=== PATIENT | male | born 1950 | race Caucasian/White ===

== ENCOUNTER 2017-09-30 09:32 | Emergency (ER) | payer OTHER ==
[~2017-09-30] VITALS: Ht 193 cm; Wt 103.4 kg
[~2017-09-30 09:32] MED LIST: B-COMPLEX-VITA1 EACH PO; DILAUDID4 MG PO; FLOMAX0.4 MG PO; LEVOTHYROXINE150 MCG PO; NORFLEX100 MG PO; OMEGA 3-6-91200 MG PO; OSTEO BI-FLEX1 EACH PO; PREDNISONE10 MG PO; TRAMADOL-APAP1 EACH PO
[2017-09-30 10:21] LABS: APPEARANCE SL.HAZY ((CLEAR)); BASOPHIL (%) 0.2 % (0-1); BILIRUBIN NEGATIVE; BLOOD NEGATIVE; COLOR AMBER ((YELLOW)); EOSINOPHIL (%) 0.4 % (0-5); GLUCOSE (STRIP) NEGATIVE; HEMATOCRIT 52.2 % (38.0-50.0); HEMOGLOBIN 17.1 G/DL (12.5-16.6); IMMATURE GRANULOCYTE (%) 0.2 % (0.0-0.7); KETONES 20; LEUKOCYTES TRACE; LYMPHOCYTE COUNT 0.4 K/uL (1.0-2.8); MCH 31.2 PG (29.0-34.0); MCHC 32.8 G/DL (30.0-36.0); MCV 95.3 FL (86-99); MONOCYTE (%) 2.6 % (3-12); MONOCYTE COUNT 0.3 K/uL (0-0.8); NEUTROPHIL (%) 92.6 % (45-76); NEUTROPHIL COUNT 9.5 K/uL (1.8-6.4); NITRITE NEGATIVE; PLATELET COUNT 230 K/uL (156-360); PROTEIN (STRIP) 30; RBC DIS.WIDTH-CV 12.1 % (11.8-14.6); RED BLOOD COUNT 5.48 M/uL (4.00-5.50); SPECIFIC GRAVITY 1.033 (1.000-1.030); UROBILINOGEN 0.2 MG/DL (0.2-1.0); WHITE BLOOD COUNT 10.2 K/uL (4.1-10.2)
[2017-09-30 10:33] LABS: ALBUMIN 4.5 g/dL (3.2-4.8); CHLORIDE 103 mEq/L (99-109); POTASSIUM 4.1 mEq/L (3.7-5.4); SODIUM 139 mEq/L (136-147)
[2017-09-30 10:36] LABS: GLUCOSE 155 mg/dL (70-99); TOTAL PROTEIN 7.6 g/dL (6.4-8.3)
[2017-09-30 10:39] LABS: ALKALINE PHOSPHATASE 196 IU/L (3-129); CREATININE 1.1 mg/dL (0.6-1.3); GFR ESTIMATE (CALCULATED) > 59 mL/min/ (58.99-99999)
[2017-09-30 10:40] LABS: AMORPHOUS URATES CRYSTALS 1+; BACTERIA RARE /HPF; EPITHELIAL CELLS 1+ /HPF; HYALINE CASTS 0-5 /LPF; UREA NITROGEN (BUN) 31 mg/dL (9-23); WHITE BLOOD CELLS 0-5 /HPF (0-5)
[2017-09-30 10:41] LABS: AST (GOT) 77 IU/L (2-34); MUCUS 2+ /LPF
[2017-09-30 10:42] LABS: ALT (GPT) 233 IU/L (3-49)
[2017-09-30 10:43] LABS: LIPASE 15 U/L (1.0-51.0)
[2017-09-30 12:12] LABS: C DIFF TOXIN NEGATIVE (NEGATIVE)
[2017-09-30] MEDS ORDERED: ZOFRAN4 MG PO (15:37)
[2017-09-30] MEDS ORDERED: BENTYL20 MG PO (15:37)
[2017-09-30] MEDS ORDERED: IMODIUM A-D2 M2 PO (15:37)
[2017-09-30 16:10] VITALS: BP 140/76
== END 2017-09-30 16:10 | disposition home or self-care (01) ==
LOC: EME 09:32
PROVIDERS: Emergency Medicine
DX: R19.7 Diarrhea, unspecified (principal); R79.89 Other specified abnormal findings of blood chemistry; R00.1 Bradycardia, unspecified; I45.4 Nonspecific intraventricular block; R93.5 Abnormal findings on diagnostic imaging of other abdominal regions, including retroperitoneum; E03.9 Hypothyroidism, unspecified; Z90.49 Acquired absence of other specified parts of digestive tract
CPT/HCPCS: 71045; 74177; 80053; 81003; 82948; 83690; 85025; 87493; 93005; 99281; 99285; J2405; J7030